=== PATIENT | male | born 1945 | race Caucasian/White ===

== ENCOUNTER 2023-04-26 15:32 | Outpatient (CLI) | payer MEDICARE, OTHER | END 2023-04-26 15:33 | disposition short-term general hospital (02) | LOC: EMS 15:32 | DX: S49.91XA Unspecified injury of right shoulder and upper arm, initial encounter (principal); W01.10XA Fall on same level from slipping, tripping and stumbling with subsequent striking against unspecified object, initial encounter; Y92.833 Campsite as the place of occurrence of the external cause | CPT/HCPCS: A0425; A0429 ==